=== PATIENT | female | born 1960 | race African-American/Black ===

== ENCOUNTER 2021-06-23 21:45 | Inpatient (IN) | payer MEDICAID ==
[~2021-06-23] VITALS: Ht 172.7 cm; Wt 62.1 kg
[2021-06-24 00:32] LABS: CLARITY URINE CLOUDY (CLEAR); COLOR URINE YELLOW (YELLOW); KETONES URINE NEGATIVE (NEGATIVE); LEUKOCYTE ESTERASE URINE 3+ (NEGATIVE); NITRITE URINE NEGATIVE (NEGATIVE); OCCULT BLOOD URINE 2+ (NEGATIVE); PH URINE 7.5 (4.5-8.0); PROTEIN URINE 3+ (NEGATIVE); SPECIFIC GRAVITY URINE 1.017 (1.005-1.030)
[2021-06-24 00:47] LABS: *AMPHETAMINES SCREEN URINE NEGATIVE (NEGATIVE); *BARBITURATES SCREEN URINE NEGATIVE (NEGATIVE)
[2021-06-24 00:48] LABS: *BENZODIAZEPINES SCREEN URINE NEGATIVE (NEGATIVE); *COCAINE SCREEN URINE NEGATIVE (NEGATIVE); CANNABINOID URINE SCREEN NEGATIVE (NEGATIVE); METHADONE URINE SCREEN NEGATIVE (NEGATIVE); OPIATES URINE SCREEN NEGATIVE (NEGATIVE); PHENCYCLIDINE URINE SCREEN NEGATIVE (NEGATIVE)
[2021-06-24 01:10] LABS: BASOPHILS % 0.2 % (0.0-2.0); HEMATOCRIT. 40.8 % (36.0-48.0); HEMOGLOBIN. 13.5 g/dL (12.0-16.0); LYMPHOCYTES % 8.9 % (20.0-50.0); MEAN CORPUSCULAR HEMOGLOBIN 27.5 pg (28.0-32.0); MEAN CORPUSCULAR VOLUME 83.1 fL (81.0-99.0); MEAN PLATELET VOLUME 10.3 fl (7.4-10.4); MONOCYTES % 10.3 % (2.0-8.0); NEUTROPHILS % 80.6 % (40.0-76.0); PLATELET 152 x1000/uL (130-400); RED BLOOD CELL COUNT 4.91 mill/uL (4.2-5.4); RED CELL DISTRIBUTION WIDTH 14.5 % (11.6-14.6)
[2021-06-24 01:18] LABS: CHLORIDE 103 mEq/L (98-107)
[2021-06-24 01:22] LABS: ETHANOL BLOOD < 10 mg/dL
[2021-06-24 01:27] LABS: CREATINE KINASE 89 IU/L (26-192)
[2021-06-24] MEDS ORDERED: DEXAMETHASONE 10 MG/ML VIAL IV ONE (01:30)
[2021-06-24] MEDS ORDERED: LEVETIRACETAM 500MG PREMIX 100 ML IV SCH (01:30)
[2021-06-24] MEDS ORDERED: CEFTRIAXONE 1 G PREMIX 50 ML IV SCH (01:30)
[2021-06-24] MEDS ORDERED: ONDANSETRON HCL 4MG/2ML INJ IV PRN (10:45)
[2021-06-24] MEDS: LEVOFLOXACIN 500MG PREMIX 100 ML IV SCH (11:31)
[2021-06-24] MEDS: SODIUM CHLORIDE 0.9% INJ 3ML FLUSH IVF SCH ×2 (14:02→22:00)
[2021-06-25] MEDS: SODIUM CHLORIDE 0.9% INJ 3ML FLUSH IVF SCH ×3 (06:00→22:00)
[2021-06-25 11:00] VITALS: BP 125/88
[2021-06-25 12:00] VITALS: BP 125/88
[2021-06-25] MEDS: LEVOFLOXACIN 500MG PREMIX 100 ML IV SCH (13:36)
[2021-06-25] MEDS ORDERED: CLONIDINE 0.1MG TABLET PO PRN (15:00)
[2021-06-25] MEDS ORDERED: BENA1TAB19 PO (15:11)
[2021-06-25] MEDS ORDERED: DET1 PO (15:14)
[2021-06-25] MEDS ORDERED: HYDR50TA PO (15:14)
[2021-06-25] MEDS ORDERED: GABA-529 PO (15:14)
[2021-06-25] MEDS ORDERED: OMEP10CA5 PO (15:14)
[2021-06-25 16:00] VITALS: BP 116/78
[2021-06-25 20:00] VITALS: BP 131/87
[2021-06-25] MEDS: GABAPENTIN 100MG CAPSULE PO SCH (23:27)
[2021-06-25] MEDS: OXYBUTYNIN CHLORIDE 5MG TABLET PO SCH (23:28)
[2021-06-26] VITALS: BP 132/88
[2021-06-26 04:00] VITALS: BP 150/91
[2021-06-26] MEDS: SODIUM CHLORIDE 0.9% INJ 3ML FLUSH IVF SCH ×3 (06:27→21:42)
[2021-06-26] MEDS: GABAPENTIN 100MG CAPSULE PO SCH ×3 (06:28→21:42)
[2021-06-26] MEDS: OXYBUTYNIN CHLORIDE 5MG TABLET PO SCH ×3 (06:28→21:42)
[2021-06-26 08:00] VITALS: BP 138/86
[2021-06-26] MEDS ORDERED: POTASSIUM CHLORIDE 20MEQ TABLET SR PO NR (11:00)
[2021-06-26] MEDS: LEVOFLOXACIN 250MG PREMIX 50 ML IV SCH (11:59)
[2021-06-26 12:00] VITALS: BP 131/77
[2021-06-26 16:00] VITALS: BP 106/69
[2021-06-26 20:00] VITALS: BP 117/77
[2021-06-27] VITALS (7 sets, daily range): BP systolic 110–130; BP diastolic 70–84
[2021-06-27] MEDS: SODIUM CHLORIDE 0.9% INJ 3ML FLUSH IVF SCH ×3 (05:13→21:26)
[2021-06-27] MEDS: GABAPENTIN 100MG CAPSULE PO SCH ×3 (05:14→21:26)
[2021-06-27] MEDS: OXYBUTYNIN CHLORIDE 5MG TABLET PO SCH ×3 (05:14→21:26)
[2021-06-27 06:59] LABS: CHLORIDE 110 mEq/L (98-107)
[2021-06-27] MEDS: LEVOFLOXACIN 250MG PREMIX 50 ML IV SCH (11:13)
[2021-06-28] VITALS: BP 132/85
[2021-06-28 04:00] VITALS: BP 136/91
[2021-06-28] MEDS: GABAPENTIN 100MG CAPSULE PO SCH (05:28)
[2021-06-28] MEDS: OXYBUTYNIN CHLORIDE 5MG TABLET PO SCH (05:28)
[2021-06-28] MEDS: SODIUM CHLORIDE 0.9% INJ 3ML FLUSH IVF SCH (05:28)
[2021-06-28 08:00] VITALS: BP 138/87
== END 2021-06-28 10:17 | disposition home health service (06) | DRG 44 ==
LOC: ER 21:45 → MICUSO 06-24 01:59 → 6EST 06-25 10:25
PROVIDERS: ADMIT Internal Medicine; ATTEND Internal Medicine
DX: I61.8 Other nontraumatic intracerebral hemorrhage (principal); E43 Unspecified severe protein-calorie malnutrition; I69.351 Hemiplegia and hemiparesis following cerebral infarction affecting right dominant side; N39.0 Urinary tract infection, site not specified; Z20.822 Contact with and (suspected) exposure to COVID-19; I10 Essential (primary) hypertension; N31.9 Neuromuscular dysfunction of bladder, unspecified; Z95.0 Presence of cardiac pacemaker; Z90.710 Acquired absence of both cervix and uterus; I49.9 Cardiac arrhythmia, unspecified
CPT/HCPCS: 36415; 71045; 80048; 80053; 80305; 80320; 81003; 82140; 82550; 83605; 83880; 84443; 84484; 85025; 87077; 87186; 87426; 87635; 93005; 99285; J0696; J1100; J1953; J1956; J7040; G0480